=== PATIENT | female | born 1965 | race Caucasian/White ===

== ENCOUNTER 2019-03-05 19:10 | Emergency (ER) | payer OTHER ==
[~2019-03-05] VITALS: Ht 157.5 cm; Wt 59.2 kg
[~2019-03-05 19:10] MED LIST: ALBU18HF INHALATION; IBUP-1542 PO; SYMB80120 INHALATION
[2019-03-05 19:17] VITALS: Ht 157.5 cm; Wt 59.2 kg
[2019-03-05] MEDS ORDERED: KETOROLAC 30 MG INJ IM STA (20:04)
[2019-03-05] MEDS ORDERED: SOD CHLORIDE 0.9% 1,000 ML IV STA (20:04)
[2019-03-05] MEDS ORDERED: ALBUTEROL 0.5% (NEB) 2.5 MG/0.5 ML AMP INH STA (20:04)
[2019-03-05] MEDS ORDERED: LEVALBUTEROL (NEB) 1.25 MG/0.5 ML AMP INH STA (20:04)
[2019-03-05] MEDS ORDERED: METOCLOPRAMIDE 10 MG INJ IV ONE (20:30)
[2019-03-05 21:15] VITALS: BP 109/66; PULSE 129; RESP 20
== END 2019-03-05 21:22 | disposition home or self-care (01) ==
LOC: FTE 19:10
DX: J45.41 Moderate persistent asthma with (acute) exacerbation (principal); H60.501 Unspecified acute noninfective otitis externa, right ear
CPT/HCPCS: 36415; 71045; 80048; 84484; 85025; 94644; 96361; 96372; 96374; J1885; J2765; J7030; Z7502; Z7610

== ENCOUNTER 2019-05-02 21:07 | Emergency (ER) | payer OTHER ==
[~2019-05-02] VITALS: Ht 157.5 cm; Wt 60.1 kg
[~2019-05-02 21:07] MED LIST changes: +ACET500C5 PO; +AMOX1TAB10 PO; +D-ME473S2 PO; +PRED20TA PO; +PSEU-83 PO
[2019-05-02 21:20] VITALS: BP 123/61; PULSE 107; RESP 24; Ht 157.5 cm; Wt 60.1 kg
[2019-05-02] MEDS ORDERED: DEXAMETHASONE 10 MG/ML 1 ML INJ PO ONE (22:00)
[2019-05-02] MEDS ORDERED: DIPHENHYDRAMINE 25 MG CAP PO ONE (22:00)
[2019-05-02] MEDS ORDERED: IBUPROFEN 600 MG TAB PO ONE (22:00)
== END 2019-05-03 00:31 | disposition home or self-care (01) ==
LOC: FTE 21:07
DX: H65.192 Other acute nonsuppurative otitis media, left ear (principal); J45.909 Unspecified asthma, uncomplicated
CPT/HCPCS: J1100; Z7610; 99283

== ENCOUNTER 2019-05-09 20:04 | Emergency (ER) | payer OTHER ==
[~2019-05-09] VITALS: Ht 162.6 cm; Wt 60.4 kg
[2019-05-09 20:09] VITALS: Ht 162.6 cm; Wt 60.4 kg
[2019-05-09] MEDS ORDERED: ACETAMINOPHEN 325 MG TAB PO ONE (21:30)
[2019-05-09] MEDS ORDERED: predniSONE 20 MG TAB PO ONE (21:30)
[2019-05-09 23:36] VITALS: BP 121/79; PULSE 87; RESP 16
== END 2019-05-09 23:37 | disposition home or self-care (01) ==
LOC: FTE 20:04
DX: J06.9 Acute upper respiratory infection, unspecified (principal); J45.909 Unspecified asthma, uncomplicated
CPT/HCPCS: 71045; J7512; Z7502; Z7610